=== PATIENT | female | born 1975 | race Hispanic/Latino ===

== ENCOUNTER → 2018-03-16 | Outpatient (CLI) | payer BC ==
--- NOTE | 2018-03-16 12:11 | Diagnostic Imaging Report ---
PROCEDURE:L-SPINE COMPLETE COMPARISON:None. INDICATIONS:LUMBAR RADICULOPATHY FINDINGS: There are 5 lumbar-type vertebral bodies with transitional lumbosacral anatomy between L5 and S1.. No acute, displaced fracture or subluxation. No pars interarticularis defects on the oblique radiographs. Mild disc space narrowing and marginal osteophytosis involving L1-L2, L4-L5, and L5-S1. Facet joints are well maintained. Sacroiliac joints are preserved. Bilateral tubal ligation clips. CONCLUSION: No acute osseous abnormality. Mild degenerative disc changes as above. Dictated by: Rolo Forrester M.D. on 03/16/2018 at 12:16 Electronically approved by: Rolo Forrester M.D. on 03/16/2018 at 12:16
--- NOTE | 2018-03-16 12:13 | Diagnostic Imaging Report ---
PROCEDURE:SACRUM X-RAY INDICATION:Lumbar radiculopathy COMPARISON:None. FINDINGS: No acute displaced fracture or dislocation. The inferior sacral body is obscured by rectal gas and stool. The sacral foramina are intact superiorly. Transitional lumbosacral anatomy. Sacroiliac joints are well-maintained. Tubal ligation clips. CONCLUSION: No acute osseous abnormality. Dictated by: Rolo Forrester M.D. on 03/16/2018 at 12:18 Electronically approved by: Rolo Forrester M.D. on 03/16/2018 at 12:18
== END ==
LOC: MAMMO 10:18
PROVIDERS: ATTEND Internal Medicine
DX: Z12.31 Encounter for screening mammogram for malignant neoplasm of breast (principal); M54.16 Radiculopathy, lumbar region
CPT/HCPCS: 72110; 72220; 77067